=== PATIENT | female | born 1945 | race Caucasian/White ===

== ENCOUNTER 2017-02-21 10:20 | Outpatient (CLI) | payer MEDICARE, OTHER ==
--- NOTE | 2017-02-21 13:04 | XRAY Report ---
TWO-VIEW CHEST: 02/21/2017 CLINICAL INDICATION: Cough. COMPARISON: Chest CT 06/24/2009. FINDINGS: Frontal and lateral views of the chest demonstrate a normal cardiac silhouette. The lungs are clear. No effusion or pneumothorax is evident. IMPRESSION: NORMAL CHEST. JOB #: [id number] EXT JOB #:[id number]
== END 2017-02-21 10:21 | disposition home or self-care (01) ==
LOC: DI 10:20
PROVIDERS: ATTEND Internal Medicine
DX: R05 Cough (principal)
CPT/HCPCS: 71020

== ENCOUNTER 2018-03-07 08:17 | Outpatient (CLI) | payer MEDICARE, OTHER | END 2018-03-07 08:18 | disposition home or self-care (01) | LOC: DI 08:17 | PROVIDERS: ATTEND Internal Medicine | DX: R01.1 Cardiac murmur, unspecified (principal); I51.7 Cardiomegaly; I34.0 Nonrheumatic mitral (valve) insufficiency; I77.810 Thoracic aortic ectasia | CPT/HCPCS: 93306 ==

== ENCOUNTER 2021-03-30 09:13 | Outpatient (CLI) | payer MEDICARE, OTHER ==
[2021-03-30 09:52] LABS: CREATININE 0.6 mg/dL (0.4-1.0)
[2021-03-30] MEDS ORDERED: iohexoL-300 100 ML VIAL ONE (09:59)
[2021-03-30] MEDS ORDERED: iohexoL-300 100 ML VIAL IVP ONE (13:57)
--- NOTE | 2021-03-30 16:28 | CT Report ---
PROCEDURE: CHEST W INDICATIONS: CHRONIC COUGH, PULMONARY NODULE CONTRAST: IV CONTRAST: Isovue 300 ml: 80 PO CONTRAST: *NO PO CONTRAST TECHNIQUE: After the administration of intravenous contrast, 1 mm axial images were acquired from the pulmonary apices through the posterior costophrenic angles. Axial 5 mm soft tissue kernel reconstructions were performed as well as 8 mm axial MIP and coronal and sagittal 5 mm reformations. For radiation dose reduction, the following was used: automated exposure control, adjustment of mA and/or kV according to patient size. COMPARISON: None. FINDINGS: Image quality: Excellent. Lungs and pleura: No significant pulmonary nodules or masses. There is mild scarring in the right mi ddle lobe, lingula, and posterior lung bases. No acute air space opacities. No pleural effusions or pneumothorax. Central and peripheral airways are patent and normal in caliber. Mediastinum: Heart size is normal. No pericardial effusion. No mediastinal or hilar adenopathy by size criteria. Thoracic aorta and central pulmonary arteries are normal in size. Esophagus is pratik l in caliber. No hiatal hernia. The coronary arteries have atherosclerotic calcifications. Bones and chest wall: No suspicious bony lesions. No vertebral body compression fractures. No axil dixie or supraclavicular adenopathy by size criteria. Thyroid gland is normal. Abdomen: Visualized upper abdominal solid organs appear normal. Upper abdominal bowel loops are nor mal in caliber. Hypodensity in the left lobe of the liver are likely cysts. IMPRESSION: 1. No acute abnormality. 2. Mild scarring in the right middle lobe, lingula, and posterior lung bases. 3. Hepatic steatosis Reviewed by: León Turner on 03/30/2021 4:27 PM PST Approved by: León Turner on 03/30/2021 4:27 PM PST Station ID: [id number]
== END 2021-03-30 09:14 | disposition home or self-care (01) ==
LOC: DI 09:13
PROVIDERS: ATTEND Internal Medicine
DX: R05.3 Chronic cough (principal); J98.4 Other disorders of lung; Z79.899 Other long term (current) drug therapy; K76.0 Fatty (change of) liver, not elsewhere classified
CPT/HCPCS: 36415; 71260; 82565; Q9967

== ENCOUNTER 2021-06-06 08:00 | Outpatient (CLI) | payer MEDICARE, OTHER ==
[2021-06-06 16:41] LABS: BILIRUBIN,URINE NEGATIVE (NEGATIVE); GLUCOSE, URINE (UA) NEGATIVE (NEGATIVE); KETONES,URINE (UA) NEGATIVE (NEGATIVE); LEUKOCYTE ESTERASE, URINE NEGATIVE (NEGATIVE); NITRITE,URINE NEGATIVE (NEGATIVE); OCCULT BLOOD,URINE NEGATIVE (NEGATIVE); PH,URINE 6.5 PH (5.0-7.5); PROTEIN,URINE NEGATIVE (NEGATIVE); UROBILINOGEN,URINE 0.2 (NORMAL) E.U./dL (NORMAL)
[2021-06-06 16:42] LABS: CLARITY,URINE CLEAR (CLEAR)
[2021-06-06 16:53] LABS: BACTERIA,URINE None Seen /HPF (None Seen); EPITHELIAL CELLS,UR RARE Transitional /HPF (<= Few); RBC,URINE 0-5 /HPF (0-5); SQUAMOUS EPITHELIAL CELL,UR NONE SEEN (<= Few); WBC,URINE 0-3 /HPF (0-5)
== END 2021-06-06 23:59 | disposition home or self-care (01) ==
LOC: LAB.R 08:00
PROVIDERS: ATTEND Internal Medicine
DX: R10.9 Unspecified abdominal pain (principal)
CPT/HCPCS: 81001; 87086

== ENCOUNTER 2023-05-23 07:53 | Outpatient (CLI) | payer MEDICARE, OTHER | END 2023-05-23 07:54 | disposition home or self-care (01) | LOC: DI 07:53 | PROVIDERS: ATTEND Internal Medicine | DX: I08.1 Rheumatic disorders of both mitral and tricuspid valves (principal) | CPT/HCPCS: 93307 ==